=== PATIENT | female | born 1995 | race Caucasian/White ===

== ENCOUNTER 2016-10-22 10:51 | Emergency (ER) | payer BC ==
[2016-10-22] MEDS ORDERED: Lidocaine 1% with EPINEPHrine 1:100,000 20 ML MDV INJECT ONE (11:09)
[2016-10-22] MEDS ORDERED: Diphtheria,Pertussis(Acell),Tetanus Vaccine 0.5 ML SDV inactive IM ONE (11:39)
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
[2016-10-22 13:24] VITALS: BP 134/74
--- NOTE | 2016-10-22 13:29 | CT ---
Head CT Technique: Multiple axial sections through the brain were obtained. Intravenous contrast was not utilized. Comparison: No previous intracranial imaging. Findings: Ventricles along the basal cisterns and sulci over the convexities are within normal limits for the patient's age. No abnormal parenchymal densities are seen. No evidence of intracranial hemorrhage. No midline shift or mass effect is seen. Bone window settings were reviewed which shows minimal mucosal thickening within the inferior ethmoid sinuses which is felt to be incidental. Mastoid sinuses and middle ear cavities are clear. No acute calvarial abnormality is seen. Soft tissue swelling as well as a small amount of soft tissue air is seen within the left frontal scalp. Impression: 1. Soft tissue swelling and soft tissue air within the left frontal scalp. 2. No acute intracranial abnormality is seen. No skull fracture is seen. Diagnostic code #2
== END 2016-10-22 13:20 | disposition home or self-care (01) ==
LOC: JD.ED 10:51
DX: S01.81XA Laceration without foreign body of other part of head, initial encounter (principal); S09.90XA Unspecified injury of head, initial encounter; Z88.2 Allergy status to sulfonamides; V86.49XA Person injured while boarding or alighting from other special all-terrain or other off-road motor vehicle, initial encounter
CPT/HCPCS: 12013; 12014; 70450; 70450-26; 90471; 90715; 99283; 99284-25

== ENCOUNTER 2017-11-24 12:18 | Emergency (ER) | payer BC ==
[2017-11-24] MEDS ORDERED: HYDROmorphone 0.5 MG/0.5 ML SYRINGE IVPUSH ONE (12:38)
[2017-11-24] MEDS ORDERED: Sodium Chloride 0.9% 10 ML Syringe FLUSH PRN (12:38)
[2017-11-24] MEDS ORDERED: Ondansetron 4 MG/2 ML SDV IVPUSH ONE (12:39)
--- NOTE | 2017-11-24 13:01 | EDM.PDOC ---
ED HPI GENERAL MEDICAL PROBLEM - General Chief Complaint: Upper Extremity Injury/Pain Stated Complaint: RIGHT ARM/SHOULDER INJURY Time Seen by Provider: 11/24/17 12:21 Source of Information: Reports: Patient History Limitations: Reports: No Limitations - History of Present Illness INITIAL COMMENTS - FREE TEXT/NARRATIVE: 21-year-old female presents for evaluation and treatment of injury to the right shoulder. Injury occurred approximately 1 hour prior to arrival in the ER. Reports that she was leading a horse when it knocked her over and she fell onto her right arm and shoulder. No syncope. No neck pain. She denies any nausea or vomiting. Primarily complaining of pain to the right shoulder. No pain to the neck, elbow or wrist. She reports that she is starting to experience some numbness and tingling into her right arm. Patient is right-handed. Onset: Today Location: Reports: Upper Extremity, Right Right Arm Pain Score (Numeric/FACES): 10 - Related Data Allergies Allergy/AdvReac Type Severity Reaction Status Date / Time Sulfa (Sulfonamide Allergy Rash Verified 11/24/17 12:23 Antibiotics) Home Meds: Home Meds Acetaminophen/oxyCODONE [Percocet 325-5 MG] 1 each PO Q4HR PRN #20 tab 11/24/17 [Rx] Past Medical History - Past Health History Medical/Surgical History: Denies Medical/Surgical History Social & Family History - Tobacco Use Smoking Status *Q: Never Smoker Review of Systems - Review of Systems Review Of Systems: See Below Musculoskeletal: Reports: Shoulder Pain (right ), Other (deformity to the right shoulder). Denies: Neck Pain Skin: Denies: Bruising, Wound Neurological: Reports: Tingling (right arm). Denies: Numbness, Syncope ED EXAM, GENERAL - Physical Exam Exam: See Below Exam Limited By: No Limitations General Appearance: Alert, WD/WN, Mild Distress Eye Exam: Bilateral Eye: Normal Inspection, PERRL Ears: Normal External Exam Nose: Normal Inspection Throat/Mouth: Normal Inspection, Normal Voice, No Airway Compromise Respiratory/Chest: No Respiratory Distress, Lungs Clear, Normal Breath Sounds Cardiovascular: Normal Peripheral Pulses, Regular Rate, Rhythm, No Murmur Peripheral Pulses: 2+: Radial (L) Extremities: Normal Capillary Refill, Other (deformity to the righ shoulder suspicious for a right shoulder dislocation; ROM testing of the right shoulder deferred due to deformity) Neurological: Alert, Oriented, Normal Cognition Psychiatric: Normal Affect, Normal Mood Skin Exam: Warm, Dry, Normal Color Course - Vital Signs Last Recorded V/S: Last Vital Signs Temp 98.7 F 11/24/17 12:23 Pulse 83 11/24/17 12:23 Resp 18 11/24/17 13:42 BP 127/74 11/24/17 12:23 Pulse Ox 100 11/24/17 13:42 - Orders/Labs/Meds Orders: Active Orders 24 hr Category Date Time Status Peripheral IV Care [RC] . DIRECTED Care 11/24/17 12:39 Active Peripheral IV Insertion Adult [OM.PC] Routine Oth 11/24/17 12:38 Ordered Meds: Medications Discontinued Medications Generic Name Dose Route Start Last Admin Trade Name Freq PRN Reason Stop Dose Admin Hydromorphone HCl 1 mg 11/24/17 12:38 11/24/17 13:06 Dilaudid IVPUSH 11/24/17 12:39 1 mg ONETIME ONE Administration Ketamine HCl Confirm 11/24/17 13:44 Ketalar Administered 11/24/17 13:45 Dose 500 mg .ROUTE .STK-MED ONE Midazolam HCl Confirm 11/24/17 13:44 Versed 1 Mg/Ml Administered 11/24/17 13:45 Dose 2 mg .ROUTE .STK-MED ONE Midazolam HCl Confirm 11/24/17 14:02 Versed 1 Mg/Ml Administered 11/24/17 14:03 Dose 2 mg .ROUTE .STK-MED ONE Ondansetron HCl 4 mg 11/24/17 12:39 11/24/17 13:05 Zofran IVPUSH 11/24/17 12:40 4 mg ONETIME ONE Administration Ondansetron HCl Confirm 11/24/17 13:02 11/24/17 13:09 Zofran Administered 11/24/17 13:03 Not Given Dose 4 mg .ROUTE .STK-MED ONE Propofol Confirm 11/24/17 13:44 Diprivan 20 Ml Administered 11/24/17 13:45 Dose 200 mg .ROUTE .STK-MED ONE Sodium Chloride 10 ml 11/24/17 12:38 11/24/17 13:08 Saline Flush FLUSH 10 ml ASDIRECTED PRN Administration Keep Vein Open - Radiology Interpretation Free Text/Narrative:: Right shoulder: Three views of the right shoulder were obtained. Anterior subcoracoid dislocation is seen. Acromioclavicular joint is normal. No acute fracture or other abnormality is seen. Impression: 1. Dislocated right shoulder. Right clavicle: Two views of the right clavicle were obtained. Comparison: No prior right clavicle study. No fracture or other bony abnormality is seen. Impression: 1. No abnormality is appreciated on two-view right clavicle study. Right shoulder: Single AP view of the right shoulder was obtained. Comparison: Prior right shoulder study performed earlier on the same day (1:03 PM). Previous dislocation has been reduced. No additional finding is seen. Impression: 1. Reduction of previous dislocation. - Re-Assessments/Exams Free Text/Narrative Re-Assessment/Exam: 11/24/17 14:24 Shoulder successfully reduced with traction, countertraction; Dr. Castro assisted. Post reduction xrays shows successful reduction and no fractures. Anesthesia assisted with sedation. Patient tolerated well. She was placed in a sling and swath. We'll monitor her here in the ER for a short time and plan to discharge her with pain medications, sling and swath and follow-up with orthopedics. 11/24/17 15:07 Patient is feeling improved and is able to eat and walk. We will discharge her home at this time. Patient reports no tingling at this time. Reports good sensation to light touch to the right hand, forearm , upper arm and anterior axilla. Discharge instructions as documented. Departure - Departure Time of Disposition: 15:07 Disposition: Home, Self-Care 01 Condition: Fair Clinical Impression: Shoulder dislocation - Discharge Information Prescriptions: Acetaminophen/oxyCODONE [Percocet 325-5 MG] 1 each PO Q4HR PRN #20 tab PRN Reason: Pain Instructions: Shoulder Dislocation, [id number] Referrals: Sarah Zelaya MD [Primary Care Provider] - Apollo Medina MD [Physician] - Forms: ED Department Discharge Additional Instructions: you were given medication in the ER today that can affect your drive and operate machinery. Do not drive or operate machinery within 12 hours of taking narcotic pain medication. Follow-up with Dr. Medina next week. Please call [phone] to schedule with him. May take [id number] ibuprofen as needed for pain. For pain not relieved by ibuprofen you may take 1-2 tabs of Percocet every 4-6 hours. Percocet is habit-forming, take as few of these as needed to control your pain. Do not drive or operate machinery within 12 hours of taking Percocet. Do not take more than 3200 mg of ibuprofen for all sources in 1 day. Keep the sling and swath on at al times. Ice the shoulder 3 or 4 times a day for 10-15 minutes. Physicians ER if your symptoms change or worsen. - My Orders Last 24 Hours: My Active Orders 11/24/17 12:38 Peripheral IV Insertion Adult [OM.PC] Routine 11/24/17 12:39 Peripheral IV Care [RC] . DIRECTED - Assessment/Plan Last 24 Hours: My Active Orders 11/24/17 12:38 Peripheral IV Insertion Adult [OM.PC] Routine 11/24/17 12:39 Peripheral IV Care [RC] . DIRECTED
[2017-11-24] MEDS ORDERED: Ondansetron 4 MG/2 ML SDV ONE (13:02)
--- NOTE | 2017-11-24 13:42 | PCM.PREANE ---
Preanesthetic Assessment - Procedure Proposed Procedure: Closed reduction right shouler - Anesthesia/Transfusion/Family Hx Anesthesia History: Prior Anesthesia Without Reaction Family History of Anesthesia Reaction: No Transfusion History: No Prior Transfusion(s) - Review of Systems General: No Symptoms Pulmonary: No Symptoms Cardiovascular: No Symptoms Gastrointestinal: No Symptoms Neurological: No Symptoms Other: Reports: None - Physical Assessment NPO Status Date: 11/24/17 NPO Status Time: 12:30 O2 Sat by Pulse Oximetry: 100 Respiratory Rate: 18 Vital Signs: Last Vital Signs Temp 37.1 C 11/24/17 12:23 Pulse 83 11/24/17 12:23 Resp 18 11/24/17 12:23 BP 127/74 11/24/17 12:23 Pulse Ox 100 11/24/17 12:23 Height: 1.63 m Weight: 70.76 kg ASA Class: 1 Mental Status: Alert & Oriented x3 Airway Class: Mallampati = 2 Dentition: Reports: Normal Dentition Thyro-Mental Finger Breadths: 3 Mouth Opening Finger Breadths: 3 ROM/Head Extension: Full Lungs: Clear to Auscultation, Normal Respiratory Effort Cardiovascular: Regular Rate, Regular Rhythm - Allergies Allergies/Adverse Reactions: Allergies Allergy/AdvReac Type Severity Reaction Status Date / Time Sulfa (Sulfonamide Allergy Rash Verified 11/24/17 12:23 Antibiotics) - Blood Blood Available: No Product(s) Available: None - Anesthesia Plan Pre-Op Medication Ordered: None - Acknowledgements Anesthesia Type Planned: MAC Pt an Appropriate Candidate for the Planned Anesthesia: Yes Alternatives and Risks of Anesthesia Discussed w Pt/Guardian: Yes Pt/Guardian Understands and Agrees with Anesthesia Plan: Yes PreAnesthesia Questionnaire - Past Health History Medical/Surgical History: Denies Medical/Surgical History - SUBSTANCE USE Smoking Status *Q: Never Smoker - HOME MEDS Home Medications: Home Meds . [No Known Home Meds] 10/22/16 [History] - CURRENT (IN HOUSE) MEDS Current Meds: Current Medications Sodium Chloride (Saline Flush) 10 ml FLUSH ASDIRECTED PRN PRN Reason: Keep Vein Open Last Admin: 11/24/17 13:08 Dose: 10 ml Discontinued Medications Hydromorphone HCl (Dilaudid) 1 mg IVPUSH ONETIME ONE Stop: 11/24/17 12:39 Last Admin: 11/24/17 13:06 Dose: 1 mg Ondansetron HCl (Zofran) 4 mg IVPUSH ONETIME ONE Stop: 11/24/17 12:40 Last Admin: 11/24/17 13:05 Dose: 4 mg Ondansetron HCl (Zofran) Confirm Administered Dose 4 mg .ROUTE .STK-MED ONE Stop: 11/24/17 13:03 Last Admin: 11/24/17 13:09 Dose: Not Given
[2017-11-24] MEDS ORDERED: Ketamine 500 mg/10 ML MDV ONE (13:44)
[2017-11-24] MEDS ORDERED: Propofol 200 MG/20 ML SDV ONE (13:44)
[2017-11-24] MEDS ORDERED: Midazolam 1 MG/ML 2 ML SDV ONE ×2 (13:44→14:02)
--- NOTE | 2017-11-24 14:07 | CR ---
Right shoulder: Three views of the right shoulder were obtained. Anterior subcoracoid dislocation is seen. Acromioclavicular joint is normal. No acute fracture or other abnormality is seen. Impression: 1. Dislocated right shoulder. Diagnostic code #3
--- NOTE | 2017-11-24 14:07 | CR ---
Right clavicle: Two views of the right clavicle were obtained. Comparison: No prior right clavicle study. No fracture or other bony abnormality is seen. Impression: 1. No abnormality is appreciated on two-view right clavicle study. Diagnostic code #1
--- NOTE | 2017-11-24 15:18 | CR ---
Right shoulder: Single AP view of the right shoulder was obtained. Comparison: Prior right shoulder study performed earlier on the same day (1:03 PM). Previous dislocation has been reduced. No additional finding is seen. Impression: 1. Reduction of previous dislocation. Diagnostic code #1
== END 2017-11-24 15:21 | disposition home or self-care (01) ==
LOC: JD.ED 12:18
DX: S43.014A Anterior dislocation of right humerus, initial encounter (principal); Z88.2 Allergy status to sulfonamides; Z79.899 Other long term (current) drug therapy; W55.12XA Struck by horse, initial encounter
CPT/HCPCS: 23650; 73000; 73020; 73030; 96374; 96375; 99284; J1170; J2250; J2405; J7050; 01620; 23655; J2704

== ENCOUNTER 2020-04-27 10:03 | Day surgery (SDC) | payer BC ==
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
[~2020-04-27 10:03] MED LIST: Dexamethasone 4 MG/ML 5 ML MDV ONE; EPINEPHrine 1 MG/ML SDV ONE; Ketorolac 30 MG/ML SDV ONE; Lactated Ringers 1,000 ML IV SCH; Lactated Ringers 1,000 ML ONE; Lidocaine 1% 2 ML ONE; Lidocaine 1% 4 ML ONE; Lidocaine 1%/Sod Bicarbonate in NS 8.4% 1 ML Syringe IDERM PRN; Midazolam 1 MG/ML 2 ML SDV ONE; Ondansetron 4 MG/2 ML SDV ONE; Propofol 200 MG/20 ML SDV ONE; Rocuronium 50 MG/5 ML Vial ONE; Ropivacaine 0.5% 5 MG/ML 30 ML SDV ONE; Sodium Chloride 0.9% 10 ML Syringe FLUSH PRN; ceFAZolin 1 GM Vial ONE; fentaNYL 250 MCG/5 ML SDV ONE
[2020-04-27] MEDS ORDERED: EPINEPHrine 1 MG/ML 30 ML MDV IRR SCH (11:00)
[2020-04-27] MEDS ORDERED: Scopolamine 1.5 MG Transdermal Patch TRDERM ONE (11:56)
[2020-04-27] MEDS ORDERED: Albuterol 0.083% 2.5 MG/3 ML Neb Soln NEB PRN (13:04)
[2020-04-27] MEDS ORDERED: diphenhydrAMINE 50 MG/ML SDV IVPUSH PRN (13:04)
[2020-04-27] MEDS ORDERED: ePHEDrine 50 MG/ML SDV IVPUSH PRN (13:04)
[2020-04-27] MEDS ORDERED: Midazolam 1 MG/ML 2 ML SDV IVPUSH PRN (13:04)
[2020-04-27] MEDS ORDERED: fentaNYL 100 MCG/2 ML SDV IVPUSH PRN (13:04)
[2020-04-27] MEDS ORDERED: Ondansetron 4 MG/2 ML SDV IVPUSH PRN (13:04)
--- NOTE | 2020-04-27 14:17 | PCM.POSTAN ---
POST ANESTHESIA ASSESSMENT - MENTAL STATUS Mental Status: Alert - VITAL SIGNS Vital Signs: Last Vital Signs Temp 36.1 C 04/27/20 14:00 Pulse 83 04/27/20 14:00 Resp 21 H 04/27/20 14:00 BP 118/61 04/27/20 14:00 Pulse Ox 97 04/27/20 14:00 - RESPIRATORY Respiratory Status: Respiratory Rate WNL, Airway Patent, O2 Saturation Stable, Supplemental Oxygen - CARDIOVASCULAR CV Status: Pulse Rate WNL, Blood Pressure Stable - GASTROINTESTINAL GI Status: No Symptoms - POST OP HYDRATION Hydration Status: Adequate & Stable
--- NOTE | 2020-04-27 14:47 | PCM48HPAN ---
Post Anesthesia Note - EVALUATION WITHIN 48HRS OF ANESTHETIC Vital Signs in Normal Range: Yes Patient Participated in Evaluation: Yes Respiratory Function Stable: Yes Airway Patent: Yes Cardiovascular Function Stable: Yes Hydration Status Stable: Yes Pain Control Satisfactory: Yes Nausea and Vomiting Control Satisfactory: Yes Mental Status Recovered: Yes Vital Signs: Last Vital Signs Temp 36.2 C 04/27/20 14:15 Pulse 67 04/27/20 14:30 Resp 14 04/27/20 14:30 BP 117/70 04/27/20 14:30 Pulse Ox 97 04/27/20 14:30
[2020-04-27] MEDS ORDERED: Ondansetron 4 MG Tab.DIS PO STA (15:37)
--- NOTE | 2020-05-10 16:43 | PCM.OPNOTE ---
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
--- NOTE | 2020-05-10 17:32 | OR ---
DATE OF OPERATION: 04/27/2020 SURGEON: Apollo Medina MD OPERATION PERFORMED: Right shoulder video arthroscopy with anterior Bankart repair and limited debridement. 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 ANESTHESIA PROVIDER: Ria Queen CRNA. JETTING MACHINE OPERATOR: Cheli Vogt PA-C ESTIMATED BLOOD LOSS: 5 mL. COMPLICATIONS: None. CONDITION: Stable. DESCRIPTION OF PROCEDURE: The patient was identified in the preoperative holding area. Proper site was marked and identified by the surgeon. The patient was taken back to the operating theater, where after adequate anesthesia, the patient was placed in the lazy left lateral decubitus position. A wedge was placed posteriorly. The patient's right upper extremity was then sterilely prepped and draped in the usual sterile fashion. OR time-out was performed. The patient received 2 g IV Ancef. 10 pounds of traction was applied to the right upper extremity. Standard posterior incision was made. Scope trocar was introduced to the glenohumeral joint. Anterior portal was created with the use of a spinal needle with outside-in technique. Subscapularis tendon was intact as well as the undersurface of the rotator cuff showing no signs of tearing. She had no engaging noted. 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 No humeral head chondromalacia was noted. Biceps attachment was intact. The patient was noted to have a large tear all the way from the 12:30 position down to roughly the 3:30, 4 o'clock position in the anterior labrum. At this time, I debrided significant synovitis the anterior portion of the glenoid. I was able to then pass suture [address] four 2.9 mm Arthrex PushLock anchors starting in the inferior position and working way superior just to the anterior portion of the biceps attachment. The patient was noted to have good bumper effect of the anterior labrum with good tightening of the anterior labrum at this point. A probe was introduced and that was found to be in adequate tight repair. Excess saline was drained from the shoulder. 3-0 nylon suture was used for closure of skin. The patient tolerated the procedure well and sent to PACU in stable condition in a sterile soft dressing and a pillow sling. ANESTHESIA: MMCY /[id number]
== END 2020-04-27 15:46 | disposition home or self-care (01) ==
LOC: JD.SDS 10:03
PROVIDERS: ATTEND Orthopaedic Surgery
DX: S43.491A Other sprain of right shoulder joint, initial encounter (principal); M25.311 Other instability, right shoulder; M65.811 Other synovitis and tenosynovitis, right shoulder; J45.909 Unspecified asthma, uncomplicated; G89.18 Other acute postprocedural pain; M94.211 Chondromalacia, right shoulder; Z88.2 Allergy status to sulfonamides; Z79.899 Other long term (current) drug therapy
CPT/HCPCS: 01630; 64415; 81025; 87641; A9270-GY; C1713; J0171; J0690; J1100; J1885; J2001; J2250; J2370; J2405; J2704; J2795; J3010; J7120